=== PATIENT | male | born 1985 | race Caucasian/White ===

== ENCOUNTER 2017-11-28 07:57 | Emergency (ER) | payer SELFPAY ==
[~2017-11-28] VITALS: Ht 182.9 cm; Wt 80.0 kg
[~2017-11-28 07:57] MED LIST: BACTRIM DS1 TAB OR; ERY-TAB333 MG OR; NO; NO MEDICATIONS; PENICILLN VK500 M1 OR; TRIMOX500 MG PO; ULTRAM50 MG OR
[2017-11-28 08:49] LABS: HEMATOCRIT 43.1 % (39.0-50.0); HEMOGLOBIN 14.5 g/dl (14.0-18.0); IMMATURE GRANULOCYTES 0.2 % (0.0-1.0); MEAN CELL VOLUME 89.2 fL CALC (80.0-100.0); MEAN CORPUSCULAR HGB CONC 33.6 g/L CALC (32.0-36.0); NEUT# 6.01 thou/uL (1.82-7.42); RED BLOOD COUNT 4.83 mill/uL (4.70-6.10); RED CELL DISTRI WIDTH 12.8 % (11.5-15.5)
[2017-11-28 09:07] LABS: ALBUMIN 4.2 g/dL (3.2-5.0); ALKALINE PHOSPHATASE 68 u/l (38-126); ANION GAP 10 (6-22 (CALC)); BILIRUBIN, TOTAL 0.4 mg/dL (0.0-1.4); BUN 11 mg/dL (9-20); BUN/CREATININE RATIO 13 (12-20 (CALC)); CARBON DIOXIDE 29 mmol/l (22-30); CHLORIDE 104 mmol/l (95-108); CREATININE 0.9 mg/dL (0.7-1.3); GFR > 60 ML/MIN (>=60 (CALC)); GFR FOR AFR.AMER. > 60 ML/MIN (>=60 (CALC)); POTASSIUM 3.6 mmol/l (3.5-5.1); SGOT/AST 34 u/l (17-59); SGPT/ALT 43 u/l (21-72); SODIUM 139 mmol/l (137-146); TOTAL PROTEIN 7.1 g/dL (6.3-8.2)
[2017-11-28 09:36] VITALS: BP 141/95
== END 2017-11-28 09:44 | disposition home or self-care (01) | DRG 312 ==
LOC: ED 07:57
PROVIDERS: Emergency Medicine
DX: R55 Syncope and collapse (principal); F17.210 Nicotine dependence, cigarettes, uncomplicated

== ENCOUNTER 2020-07-23 17:11 | Emergency (ER) | payer SELFPAY ==
[~2020-07-23] VITALS: Ht 182.9 cm; Wt 109.0 kg
[2020-07-23 17:47] LABS: HEMATOCRIT 42.2 % (39.0-50.0); HEMOGLOBIN 13.9 g/dl (14.0-18.0); IMMATURE GRANULOCYTES 0.3 % (0.0-5.0); MEAN CELL VOLUME 88.5 fL CALC (80.0-100.0); MEAN CORPUSCULAR HGB 29.1 pG CALC (26.0-32.0); MEAN CORPUSCULAR HGB CONC 32.9 g/dL CAL (32.0-36.0); NEUT# 8.83 thou/uL (1.82-7.42); RED BLOOD COUNT 4.77 mill/uL (4.70-6.10); RED CELL DISTRI WIDTH 13.9 % (11.5-15.5)
[2020-07-23 18:18] LABS: ALBUMIN 4.2 g/dL (3.2-5.0); ALKALINE PHOSPHATASE 61 u/l (38-126); ANION GAP 12 (6-22 (CALC)); BILIRUBIN, TOTAL 0.3 mg/dL (0.0-1.4); BUN 5 mg/dL (9-20); BUN/CREATININE RATIO 5 (12-20 (CALC)); CARBON DIOXIDE 25 mmol/l (22-30); CHLORIDE 102 mmol/l (95-108); CREATININE 0.9 mg/dL (0.7-1.3); GFR > 60 ML/MIN (>=60 (CALC)); GFR FOR AFR.AMER. > 60 ML/MIN (>=60 (CALC)); POTASSIUM 3.2 mmol/l (3.5-5.1); SGOT/AST 25 u/l (17-59); SODIUM 137 mmol/l (137-146); TOTAL PROTEIN 7.2 g/dL (6.3-8.2)
[2020-07-23 19:35] VITALS: BP 148/89
== END 2020-07-23 19:35 | disposition home or self-care (01) | DRG 125 ==
LOC: ED 17:11
PROVIDERS: Emergency Medicine
DX: H53.8 Other visual disturbances (principal); F17.210 Nicotine dependence, cigarettes, uncomplicated

== ENCOUNTER 2020-12-15 09:31 | Emergency (ER) | payer SELFPAY ==
[~2020-12-15] VITALS: Ht 182.9 cm; Wt 86.3 kg
[2020-12-15] MEDS ORDERED: ULTRAM50 MG PO (10:15)
[2020-12-15] MEDS ORDERED: BACTRIM DS1 TAB PO (10:15)
[2020-12-15] MEDS ORDERED: KEFLEX500 MG PO (10:15)
[2020-12-15 10:33] VITALS: BP 128/87
[2020-12-15] MEDS ORDERED: LORTAB 1010 MG PO (21:36)
== END 2020-12-15 10:45 | disposition home or self-care (01) | DRG 607 ==
LOC: ED 09:31
DX: L73.2 Hidradenitis suppurativa (principal); F17.210 Nicotine dependence, cigarettes, uncomplicated; L02.411 Cutaneous abscess of right axilla

== ENCOUNTER 2020-12-15 20:44 | Emergency (ER) | payer SELFPAY ==
[~2020-12-15] VITALS: Ht 182.9 cm; Wt 41.0 kg
[~2020-12-15 20:44] MED LIST changes: +BACTRIM DS1 TAB PO; +KEFLEX500 MG PO; +ULTRAM50 MG PO
[2020-12-15] MEDS ORDERED: LORTAB 1010 MG PO (21:36)
[2020-12-15 21:50] VITALS: BP 131/72
== END 2020-12-15 21:53 | disposition home or self-care (01) | DRG 603 ==
LOC: ED 20:44
PROC: 0H9BXZZ Drainage of Right Upper Arm Skin, External Approach (ICD-10-PCS; principal; 2020-12-15)
DX: L02.411 Cutaneous abscess of right axilla (principal); F17.210 Nicotine dependence, cigarettes, uncomplicated

== ENCOUNTER 2021-09-12 19:52 | Emergency (ER) | payer SELFPAY ==
[2021-09-12] VITALS (8 sets, daily range): BP systolic 106–166; BP diastolic 55–119
[~2021-09-12] VITALS: Ht 182.9 cm; Wt 100.0 kg
[~2021-09-12 19:52] MED LIST changes: +LORTAB 1010 MG PO
[2021-09-12] MEDS ORDERED: AMOXICILLIN500 MG PO (20:01)
[2021-09-12] MEDS ORDERED: LORTAB 1010 MG PO (20:03)
== END 2021-09-12 20:37 | disposition home or self-care (01) | DRG 159 ==
LOC: ED 19:52
DX: K04.7 Periapical abscess without sinus (principal); S02.5XXA Fracture of tooth (traumatic), initial encounter for closed fracture; F17.210 Nicotine dependence, cigarettes, uncomplicated; X58.XXXA Exposure to other specified factors, initial encounter

== ENCOUNTER 2021-12-08 23:23 | Emergency (ER) | payer SELFPAY ==
[~2021-12-08] VITALS: Ht 182.9 cm; Wt 82.0 kg
[~2021-12-08 23:23] MED LIST changes: +AMOXICILLIN500 MG PO
[2021-12-09] MEDS ORDERED: ULTRAM50 M1 PO (01:12)
[2021-12-09] MEDS ORDERED: AMOXICILLIN500 MG PO (01:12)
[2021-12-09 01:52] VITALS: BP 128/78
== END 2021-12-09 01:52 | disposition home or self-care (01) | DRG 159 ==
LOC: ED 23:23
DX: K04.7 Periapical abscess without sinus (principal); S02.5XXA Fracture of tooth (traumatic), initial encounter for closed fracture; F17.200 Nicotine dependence, unspecified, uncomplicated; X58.XXXA Exposure to other specified factors, initial encounter

== ENCOUNTER 2022-01-10 11:03 | Emergency (ER) | payer SELFPAY ==
[~2022-01-10] VITALS: Ht 182.9 cm; Wt 84.5 kg
[~2022-01-10 11:03] MED LIST changes: +ULTRAM50 M1 PO
[2022-01-10 11:23] VITALS: BP 117/84
[2022-01-10 11:30] VITALS: BP 120/83
[2022-01-10 11:45] VITALS: BP 115/78
[2022-01-10 12:00] VITALS: BP 116/70
[2022-01-10 12:14] VITALS: BP 116/70
[2022-01-10] MEDS ORDERED: OFLOXACIN0.3 % OD (12:14)
== END 2022-01-10 12:32 | disposition home or self-care (01) | DRG 125 ==
LOC: ED 11:03
PROC: 08J0XZZ Inspection of Right Eye, External Approach (ICD-10-PCS; principal; 2022-01-10)
DX: T15.81XA Foreign body in other and multiple parts of external eye, right eye, initial encounter (principal); F17.210 Nicotine dependence, cigarettes, uncomplicated; X58.XXXA Exposure to other specified factors, initial encounter

== ENCOUNTER 2022-04-09 22:38 | Emergency (ER) | payer SELFPAY ==
[~2022-04-09] VITALS: Ht 180.3 cm; Wt 84.0 kg
[~2022-04-09 22:38] MED LIST changes: +OFLOXACIN0.3 % OD
[2022-04-09] MEDS ORDERED: LORTAB 1010 MG PO (23:32)
[2022-04-09] MEDS ORDERED: BACTRIM DS1 TAB PO (23:32)
[2022-04-09] MEDS ORDERED: CEPHALEXIN500 MG PO (23:32)
[2022-04-09 23:39] VITALS: BP 142/87
== END 2022-04-09 23:44 | disposition home or self-care (01) | DRG 603 ==
LOC: ED 22:38
DX: L02.414 Cutaneous abscess of left upper limb (principal)

== ENCOUNTER 2022-05-07 12:24 | Emergency (ER) | payer OTHER ==
[~2022-05-07] VITALS: Ht 180.3 cm; Wt 83.9 kg
[~2022-05-07 12:24] MED LIST changes: +CEPHALEXIN500 MG PO
[2022-05-07 14:55] VITALS: BP 150/91
[2022-05-07] MEDS ORDERED: OFLOXACIN0.3 % OS (15:08)
== END 2022-05-07 14:55 | disposition home or self-care (01) | DRG 125 ==
LOC: ED 12:24
DX: T15.92XA Foreign body on external eye, part unspecified, left eye, initial encounter (principal)

== ENCOUNTER 2022-06-19 18:21 | Emergency (ER) | payer SELFPAY ==
[~2022-06-19] VITALS: Ht 180.3 cm; Wt 84.0 kg
[~2022-06-19 18:21] MED LIST changes: +OFLOXACIN0.3 % OS
[2022-06-19 19:30] VITALS: BP 129/80
[2022-06-19] MEDS ORDERED: TRAMADOL HCL50 MG PO (19:37)
[2022-06-19] MEDS ORDERED: VOLTAREN75 MG PO (19:37)
[2022-06-19] MEDS ORDERED: AMOXICILLIN500 M2 PO (19:37)
[2022-06-19 19:40] VITALS: BP 129/80
== END 2022-06-19 19:50 | disposition home or self-care (01) | DRG 159 ==
LOC: ED 18:21
DX: K04.7 Periapical abscess without sinus (principal)

== ENCOUNTER 2022-11-03 21:20 | Emergency (ER) | payer SELFPAY ==
[~2022-11-03] VITALS: Ht 180.3 cm; Wt 95.3 kg
[~2022-11-03 21:20] MED LIST changes: +AMOXICILLIN500 M2 PO; +TRAMADOL HCL50 MG PO; +VOLTAREN75 MG PO
[2022-11-03] MEDS ORDERED: LORTAB 1010 MG PO (21:34)
[2022-11-03] MEDS ORDERED: AMOXICILLIN500 MG PO (21:34)
[2022-11-03 21:56] VITALS: BP 145/96
== END 2022-11-03 22:02 | disposition home or self-care (01) | DRG 159 ==
LOC: ED 21:20
DX: K04.7 Periapical abscess without sinus (principal); S02.5XXA Fracture of tooth (traumatic), initial encounter for closed fracture; F17.210 Nicotine dependence, cigarettes, uncomplicated; X58.XXXA Exposure to other specified factors, initial encounter

== ENCOUNTER 2023-01-13 01:01 | Emergency (ER) | payer SELFPAY ==
[~2023-01-13] VITALS: Ht 177.8 cm; Wt 84.0 kg
[2023-01-13 01:08] VITALS: BP 127/86
[2023-01-13 01:34] LABS: BASO% 0.3 % (0-3); EOS% 3.3 % (0-8); HEMATOCRIT 41.4 % (39.0-50.0); IMMATURE GRANULOCYTES 0.3 % (0.0-5.0); LYMPH% 15.1 % (15-41); MEAN CELL VOLUME 89.8 fL CALC (80.0-100.0); MEAN CORPUSCULAR HGB 30.4 pG CALC (26.0-32.0); MEAN CORPUSCULAR HGB CONC 33.8 g/dL CAL (32.0-36.0); MONO% 7.1 % (2-13); NEUT# 11.37 thou/uL (1.82-7.42); NEUT% 73.9 % (42-76); RED BLOOD COUNT 4.61 mill/uL (4.70-6.10); RED CELL DISTRI WIDTH 13.1 % (11.5-15.5)
[2023-01-13 01:51] LABS: ALBUMIN 4.4 g/dL (3.2-5.0); ALKALINE PHOSPHATASE 37 u/l (38-126); BUN 16 mg/dL (9-20); BUN/CREATININE RATIO 17 (12-20 (CALC)); CARBON DIOXIDE 25 mmol/l (22-30); CHLORIDE 105 mmol/l (95-108); CREATININE 0.9 mg/dL (0.7-1.3); GFR FOR AFR.AMER. > 60 ML/MIN (>=60 (CALC)); GFR OTHER RACES > 60 ML/MIN (>=60 (CALC)); SGOT/AST 32 u/l (17-59); SODIUM 138 mmol/l (137-146); TOTAL PROTEIN 7.2 g/dL (6.3-8.2)
[2023-01-13 01:52] LABS: ANION GAP 12 (6-22 (CALC)); BILIRUBIN, TOTAL 0.5 mg/dL (0.2-1.3); POTASSIUM 4.3 mmol/l (3.5-5.1)
[2023-01-13] MEDS ORDERED: CEPHALEXIN500 MG PO (02:02)
[2023-01-13] MEDS ORDERED: BACTRIM DS1 TAB PO (02:02)
[2023-01-13] MEDS ORDERED: LORTAB 1010 MG PO (02:02)
[2023-01-13 02:40] VITALS: BP 127/82
== END 2023-01-13 02:40 | disposition home or self-care (01) | DRG 603 ==
LOC: ED 01:01
PROVIDERS: Emergency Medicine
DX: L02.512 Cutaneous abscess of left hand (principal); B95.62 Methicillin resistant Staphylococcus aureus infection as the cause of diseases classified elsewhere; F17.200 Nicotine dependence, unspecified, uncomplicated

== ENCOUNTER 2023-01-21 09:34 | Emergency (ER) | payer OTHER ==
[~2023-01-21] VITALS: Ht 177.8 cm; Wt 94.0 kg
[2023-01-21 09:42] VITALS: BP 144/103
[2023-01-21 09:45] VITALS: BP 149/93
[2023-01-21] MEDS ORDERED: KEFLEX500 MG PO (10:49)
[2023-01-21 11:07] VITALS: BP 149/93
== END 2023-01-21 11:13 | disposition home or self-care (01) | DRG 605 ==
LOC: ED 09:34
PROC: 0HQFXZZ Repair Right Hand Skin, External Approach (ICD-10-PCS; principal; 2023-01-21)
DX: S61.411A Laceration without foreign body of right hand, initial encounter (principal); F17.210 Nicotine dependence, cigarettes, uncomplicated; W20.8XXA Other cause of strike by thrown, projected or falling object, initial encounter; Y99.0 Civilian activity done for income or pay